=== PATIENT | female | born 1975 | race Caucasian/White ===

== ENCOUNTER 2017-01-20 18:09 | Emergency (ER) | payer OTHER ==
[~2017-01-20] VITALS: Ht 165.1 cm; Wt 130.4 kg
[~2017-01-20 18:09] MED LIST: OXYC-360 PO; VIVE0.1D TD; Z.0.NO CURRENT MEDS
[2017-01-20 18:14] VITALS: BP 191/112; PULSE 104; RESP 20; TEMP 99.2; O2SAT 100
--- NOTE | 2017-01-20 18:30 | PD ---
HPI Chief Complaint: Chest Pain Time Seen by Provider: 18:19 Travel History International Travel<30 days: No Contact w/Intl Traveler<30days: No Traveled to known affect area: No History of Present Illness HPI This 41-year-old female that she had an episode today where she had very strong palpitations. They lasted about 30 seconds. She then had a pounding in her head and lasted about a minute. She has had intermittent palpitations in the past but not as bad as this. She has been having some pain in the back of her right shoulder for the last few days. She took some Advil which didn't seem to help much. There is no history of trauma. The pain in her shoulder is worse with movement. She has no history of heart disease. She does not smoke. She has no history of hypertension or diabetes. She does not get exertional pain. She is having some left-sided precordial pain at this time. There is been no fever or chills. She has not been short of breath PFSH Past Medical History Cancer: No Diabetes: No Hepatitis: No Hiatal Hernia: No Respiratory: Yes (EXERCISE INDUCED ASTHMA) Thyroid Disease: No ?: Not Past Surgical History Abdominal Surgery: Yes (CHOLECYSTECTOMY) Cholecystectomy: Yes Gynecologic Surgery: Yes (OOPHORECTOMY; TUBAL LIGATION) Hysterectomy: Yes Social History Alcohol Use: No Tobacco Use: No Substance Use: No Allergies-Medications (Allergen,Severity, Reaction): Uncoded Allergies: SURGICAL TAPE (Allergy, 05/14/11) Reported Meds & Prescriptions Reported Meds & Active Scripts Active No Active Prescriptions or Reported Medications Review of Systems General / Constitutional: No: Fever, Chills Eyes: No: Diploplia, Blurred Vision HENT: No: Headaches, Vertigo Cardiovascular: Positive: Palpitations, No: Chest Pain or Discomfort Respiratory: No: Cough, Shortness of Breath Gastrointestinal: No: Nausea, Vomiting Genitourinary: No: Urgency, Frequency Skin: No Rash Physical Exam Narrative GENERAL: Well-developed female SKIN: Focused skin assessment warm/dry. HEAD: Atraumatic. Normocephalic. EYES: Pupils equal and round. No scleral icterus. No injection or drainage. ENT: No nasal bleeding or discharge. Mucous membranes pink and moist. NECK: Trachea midline. No JVD. CARDIOVASCULAR: Regular rate and rhythm. No murmur appreciated. RESPIRATORY: No accessory muscle use. Clear to auscultation. Breath sounds equal bilaterally. GASTROINTESTINAL: Abdomen soft, non-tender, nondistended. Hepatic and splenic margins not palpable. MUSCULOSKELETAL: No obvious deformities. No clubbing. No cyanosis. No edema. NEUROLOGICAL: Awake and alert. No obvious cranial nerve deficits. Motor grossly within normal limits. Normal speech. PSYCHIATRIC: Appropriate mood and affect; insight and judgment normal. Data Data Last Documented VS Vital Signs Date Time Temp Pulse Resp B/P (MAP) Pulse Ox O2 Delivery O2 Flow Rate FiO2 01/20/17 19:00 98.6 79 18 171/106 (127) 98 Room Air Orders Orders Electrocardiogram (01/20/17 18:25) Complete Blood Count With Diff (01/20/17 18:25) Basic Metabolic Panel (Bmp) (01/20/17 18:25) Troponin I (01/20/17 18:25) Thyroid Stimulating Hormone (01/20/17 18:25) Chest, Single Ap (01/20/17 18:25) B-Type Natriuretic Peptide (01/20/17 19:17) Labs Laboratory Tests Test 01/20/17 18:40 01/20/17 19:28 White Blood Count 8.8 TH/MM3 Red Blood Count 4.75 MIL/MM3 Hemoglobin 13.7 GM/DL Hematocrit 40.7 % Mean Corpuscular Volume 85.8 FL Mean Corpuscular Hemoglobin 29.0 PG Mean Corpuscular Hemoglobin Concent 33.7 % Red Cell Distribution Width 12.0 % Platelet Count 278 TH/MM3 Mean Platelet Volume 8.6 FL Neutrophils (%) (Auto) 59.8 % Lymphocytes (%) (Auto) 34.3 % Monocytes (%) (Auto) 4.2 % Eosinophils (%) (Auto) 0.8 % Basophils (%) (Auto) 0.9 % Neutrophils # (Auto) 5.2 TH/MM3 Lymphocytes # (Auto) 3.0 TH/MM3 Monocytes # (Auto) 0.4 TH/MM3 Eosinophils # (Auto) 0.1 TH/MM3 Basophils # (Auto) 0.1 TH/MM3 CBC Comment DIFF FINAL Differential Comment Blood Urea Nitrogen 17 MG/DL Creatinine 0.91 MG/DL Random Glucose 95 MG/DL Calcium Level 8.9 MG/DL Sodium Level 139 MEQ/L Potassium Level 3.9 MEQ/L Chloride Level 104 MEQ/L Carbon Dioxide Level 26.8 MEQ/L Anion Gap 8 MEQ/L Estimat Glomerular Filtration Rate 68 ML/MIN Troponin I LESS THAN 0.02 NG/ML Thyroid Stimulating Hormone 3rd Gen 2.240 uIU/ML B-Type Natriuretic Peptide 14 PG/ML MDM Medical Decision Making Medical Screen Exam Complete: Yes Emergency Medical Condition: Yes Medical Record Reviewed: Yes Differential Diagnosis Differential includes cardiac dysrhythmia, coronary artery disease, anxiety Narrative Course EKG shows sinus rhythm. Troponin is normal. Chest x-ray was showing possible pulmonary vascular congestion and a BNP is normal. Blood pressure is initially elevated but is come down during observation. Admission to chest pain center was offered but the patient wishes to be released. She is stable for discharge Diagnosis Primary Impression: Palpitations Additional Instructions: Return as needed. Follow-up with your own medical doctor Scripts No Active Prescriptions or Reported Meds Disposition: 01 DISCHARGE HOME Condition: Stable Syed Camarillo MD Jan 20, 2017 18:30
[2017-01-20 18:47] LABS: AUTOMATED NEUTROPHIL # 5.2 TH/MM3 (1.8-7.7); BASOPHIL # 0.1 TH/MM3 (0-0.2); BASOPHIL % 0.9 % (0.0-2.0); EOSINOPHIL # 0.1 TH/MM3 (0-0.4); EOSINOPHIL % 0.8 % (0.0-4.0); HEMATOCRIT 40.7 % (35.0-46.0); HEMO FLAGS DIFF FINAL; LYMPH % 34.3 % (9.0-44.0); MEAN CELL VOLUME 85.8 FL (80.0-100.0); MEAN CORPUSCULAR HGB CONC 33.7 % (32.0-36.0); MONO % 4.2 % (0.0-8.0); NEUT % 59.8 % (16.0-70.0); PLATELET COUNT 278 TH/MM3 (150-450); RED BLOOD COUNT 4.75 MIL/MM3 (4.00-5.30); WHITE BLOOD COUNT 8.8 TH/MM3 (4.0-11.0)
[2017-01-20 18:54] LABS: CHLORIDE 104 MEQ/L (98-107); POTASSIUM 3.9 MEQ/L (3.5-5.1); SODIUM (NA) 139 MEQ/L (136-145)
[2017-01-20 18:57] LABS: ANION GAP 8 MEQ/L (5-15); BICARBONATE 26.8 MEQ/L (21.0-32.0); BLOOD UREA NITROGEN 17 MG/DL (7-18)
[2017-01-20 19:00] VITALS: BP 171/106; PULSE 79; RESP 18; TEMP 98.6; O2SAT 98
[2017-01-20 19:01] LABS: GLOMERULAR FILTRATION RATE 68 ML/MIN (>89)
--- NOTE | 2017-01-20 19:12 | RADRPT ---
EXAM DATE/TIME: 01/20/2017 18:49 [facility] COMPARISON: No previous studies available for comparison. INDICATIONS : Chest palpitations today. MEDICAL HISTORY : None. SURGICAL HISTORY : None. ENCOUNTER: Initial ACUITY: 1 day PAIN SCORE: 3/10 LOCATION: Bilateral chest FINDINGS: Mild increased perihilar interstitial markings are noted consistent with mild pulmonary vascular juve estion versus viral pneumonitis. Clinical correlation is recommended. The heart is top normal in siz e. No focal alveolar consolidation is noted. CONCLUSION: Mild increased perihilar interstitial markings consistent with mild pulmonary vascular congestion morena alma rosa viral pneumonitis. Clinical correlation is recommended. Eligio Ortega MD on January 20, 2017 at 19:05 Board Certified Radiologist. This report was verified electronically.
[2017-01-20 19:30] VITALS: BP 134/75; PULSE 88; RESP 18; O2SAT 97
[2017-01-20 20:00] VITALS: BP 138/75; PULSE 86; RESP 18; O2SAT 97
--- NOTE | 2017-01-21 20:54 | EKG ---
Date Performed: 01/20/2017 Time Performed: 18:31:19 PTAGE: 41 years EKG: Sinus rhythm WITH SINUS ARRHYTHMIA NORMAL ECG PREVIOUS TRACING : 05/12/2011 14.01 Compared to prior tracing no significant change DOCTOR: Des Gomez Interpretating Date/Time 01/21/2017 20:48:11
== END 2017-01-20 20:25 | disposition home or self-care (01) ==
LOC: PHED 18:09
DX: R00.2 Palpitations (principal)
CPT/HCPCS: 71010; 80048; 83880; 84443; 84484; 85025; 93005; 99285